=== PATIENT | male | born 1950 | race Caucasian/White ===

== ENCOUNTER → 2016-07-28 | Outpatient (CLI) | payer OTHER ==
--- NOTE | 2016-07-28 13:13 | CPEKG ---
Heart Rate: 70 RR Interval: 857 P-R Interval: 168 QRSD Interval: 90 QT Interval: 408 QTC Interval: 441 P [place]: 78 QRS [place]: -83 T Wave [place]: 65 EKG Severity - ABNORMAL ECG - EKG Impression: SINUS RHYTHM EKG Impression: LEFT ANTERIOR FASCICULAR BLOCK EKG Impression: Agree with above Electronically Signed By: Sp Tello 28-Jul-2016 16:42:44
== END ==
LOC: FCP 13:03
PROVIDERS: ATTEND Anesthesiology
DX: Z79.891 Long term (current) use of opiate analgesic (principal)